=== PATIENT | female | born 1960 | race African-American/Black ===

== ENCOUNTER 2016-11-08 02:58 | Emergency (ER) | payer MEDICAID ==
[~2016-11-08] VITALS: Ht 175.3 cm; Wt 56.7 kg
[~2016-11-08 02:58] MED LIST: APA PO; BACITRACIN 500 UNIT TP; BACTRIM 400 MG-1 TAB PO; HYDROCODONE PO; LISINOPRIL40 MG PO; PRINIVIL10 M1 PO; TENORMIN50 M1 PO
[2016-11-08 03:07] VITALS: BP 142/82
--- NOTE | 2016-11-08 03:14 | NUR ---
PATIENT TO ER BED 5
--- NOTE | 2016-11-08 03:16 | NUR ---
56 Y/O F W/C/O PAIN ACHING/ BURNING TO L FOOT X 1 WK. DRYNESS TO AFFECTED FOOT NOTED. NO S/S OF DISTRESS NOTED AT THE MOMENT, WILL CONT TO MONITOR.
[2016-11-08 04:14] VITALS: BP 140/79
--- NOTE | 2016-11-08 04:14 | NUR ---
Patient discharged with v/s stable. Written and verbal after care instructions given and explained. Patient alert, oriented and verbalized understanding of instructions. Ambulatory with steady gait. All questions addressed prior to discharge. ID band removed. Patient advised to follow up with PMD. Rx of LOTRIMIN given. Patient educated on indication of medication including possible reaction and side effects. Opportunity to ask questions provided and answered.
== END 2016-11-08 04:14 | disposition home or self-care (01) ==
LOC: MED 02:58
DX: M76.61 Achilles tendinitis, right leg (principal); B35.3 Tinea pedis; I10 Essential (primary) hypertension
CPT/HCPCS: 73610; 73630; 99284; Q0092

== ENCOUNTER 2017-09-13 16:15 | Emergency (ER) | payer MEDICAID ==
[~2017-09-13] VITALS: Ht 172.7 cm; Wt 58.1 kg
[~2017-09-13 16:15] MED LIST changes: -APA PO; -BACITRACIN 500 UNIT TP; -BACTRIM 400 MG-1 TAB PO; -HYDROCODONE PO; +LISI40TA4 PO; -LISINOPRIL40 MG PO; -PRINIVIL10 M1 PO; -TENORMIN50 M1 PO
[2017-09-13 16:38] VITALS: BP 150/89
[2017-09-13] MEDS ORDERED: HYDR1CAP PO (17:39)
[2017-09-13 19:42] VITALS: BP 142/85
== END 2017-09-13 19:42 | disposition home or self-care (01) ==
LOC: MED 16:15
DX: J06.9 Acute upper respiratory infection, unspecified (principal); I10 Essential (primary) hypertension; Z79.899 Other long term (current) drug therapy; F17.210 Nicotine dependence, cigarettes, uncomplicated
CPT/HCPCS: 36415; 71045; 87804; 99285; Q0092

== ENCOUNTER 2017-10-26 11:33 | Inpatient (IN) | payer MEDICAID ==
[~2017-10-26] VITALS: Ht 177.8 cm; Wt 56.3 kg
[2017-10-26 11:51] VITALS: BP 109/56
[2017-10-26 14:10] LABS: BASOPHILS # (AUTO) 0.4 K/uL (0.00-0.22); EOSINOPHILS # (AUTO) 0.2 K/uL (0-0.4); HEMATOCRIT 45.1 % (36-48); HEMOGLOBIN 15.2 g/dL (12.0-16.0); LYMPHOCYTES # (AUTO) 1.8 K/uL (2.5-16.5); MEAN CORPUSCULAR HEMOGLOBIN 31 pg (27-31); MEAN CORPUSCULAR HGB CONC 34 g/dL (33-37); MEAN CORPUSCULAR VOLUME 92 fL (80-94); MONOCYTES # (AUTO) 0.8 K/uL (0.8-1.0); NEUTROPHILS # (AUTO) 9.2 K/uL (1.8-7.7); PLATELET COUNT (AUTO) 252 K/uL (140-450); RED BLOOD CELL COUNT(AUTO) 4.91 MIL/uL (4.20-5.40); RED CELL DISTRIBUTION WIDTH 13.4 % (11.6-13.7); WHITE BLOOD COUNT (AUTO) 12.4 K/uL (4.8-10.8)
[2017-10-26 14:43] LABS: PROTHROMBIN TIME 10.5 secs (10.8-13.4)
[2017-10-26 14:44] LABS: ANION GAP 15.3 (8-16); CARBON DIOXIDE 22.1 mmol/L (21-32); CREATININE 0.8 mg/dL (0.6-1.3); POTASSIUM 3.4 mmol/L (3.5-5.1)
[2017-10-26] MEDS ORDERED: ASPIRIN 81 MG TAB.CHEW PO ONE (14:50)
[2017-10-26] MEDS ORDERED: NITROGLYCERIN 2% 1 GM PKT TP ONE (14:50)
[2017-10-26] MEDS ORDERED: HYDROcodone/APAP 7.5/325 MG 1 TAB PO PRN (15:05)
[2017-10-26] MEDS ORDERED: MORPHINE SULFATE 2 MG/ML SYR IVP PRN (15:05)
[2017-10-26] MEDS ORDERED: ACETAMINOPHEN 325 MG TAB PO PRN (15:05)
[2017-10-26] MEDS ORDERED: ONDANSETRON 4 MG/2 ML VIAL IM/IVP PRN (15:05)
[2017-10-26] MEDS ORDERED: DOCUSATE SODIUM 100 MG GELCAP PO PRN (15:05)
[2017-10-26] MEDS ORDERED: MECLIZINE 25 MG TAB PO PRN (15:10)
[2017-10-26] MEDS ORDERED: ZOLPIDEM 5 MG TAB PO PRN (15:35)
[2017-10-26] MEDS ORDERED: ALBUTEROL SULFATE/IPRATROPIU 3 ML SOL IH PRN (16:00)
[2017-10-26] MEDS ORDERED: POTASSIUM CHLORIDE 10 MEQ TABER PO SCH (16:06)
[2017-10-26 16:11] LABS: CHOL/HDL RATIO 2.4 (1-4.5); FREE T4 (FREE THYROXINE) 1.11 ng/dL (0.76-1.46); MAGNESIUM 1.8 mg/dL (1.8-2.4); PHOSPHORUS 1.8 mg/dL (2.5-4.9); THYROID STIMULATING HORMONE 0.68 uIU/mL (0.34-3.74)
[2017-10-26 17:14] VITALS: BP 148/84
[2017-10-26] MEDS: NACL 0.9% 1,000 ML IV SCH (17:38)
[2017-10-26 18:36] LABS: BILIRUBIN,URINE 1+ (NEGATIVE); BLOOD, URINE 2+ (NEGATIVE); LEUKOCYTE ESTERASE ,URINE 2+ (NEGATIVE); NITRITE, URINE NEGATIVE (NEGATIVE); PH,URINE 5.5 (5.0-9.0); UGLUCOSE NEGATIVE (NEGATIVE)
[2017-10-26 18:37] LABS: APPEARANCE,URINE HAZY (CLEAR); COLOR,URINE AMBER (YELLOW)
[2017-10-26 18:49] LABS: BARBITURATE, URINE POS. ng/ml (NEG <=200); BENZODIAZEPINE, URINE NEG. ng/mL (NEG <=200); CANNABINOID, URINE POS. ng/mL (NEG <=50); COCAINE, URINE POS. ng/mL (NEG <=300); OPIATE, URINE POS. ng/mL (NEG <=2000); PHENCYCLIDINE SCREEN,URINE NEG. ng/mL (NEG <=25)
[2017-10-26 19:30] LABS: RBC,URINE 3-10 (FEW) /HPF (0-5); WBC,URINE 60-80 /HPF (0-5)
[2017-10-26 20:10] VITALS: BP 144/97
[2017-10-26] MEDS: LISINOPRIL 20 MG TAB PO SCH (20:34)
[2017-10-26] MEDS: NICOTINE TRANSD SYS 7 MG/24 HR PATCH TD SCH (20:36)
[2017-10-27] VITALS: BP 137/87
[2017-10-27] MEDS: LEVOFLOXACIN 750 MG/D5W PREMIX 150 ML IV SCH (02:07)
[2017-10-27 04:00] VITALS: BP 138/92
[2017-10-27] MEDS ORDERED: CLINDAMYCIN 600 MG/4 ML VIAL ONE (05:10)
[2017-10-27] MEDS: CLINDAMYCIN 600 MG in DEXTROSE 5% 50 ML IV SCH ×3 (05:26→20:47)
[2017-10-27 06:42] LABS: T4 (THYROXINE) 8.4 ug/dL (4.5-12.0)
[2017-10-27 06:55] LABS: BASOPHILS # (AUTO) 0.1 K/uL (0.00-0.22); BASOPHILS % (AUTO) 1.9 % (0.0-2.0); EOSINOPHILS # (AUTO) 0.1 K/uL (0-0.4); HEMATOCRIT 44.2 % (36-48); HEMOGLOBIN 14.3 g/dL (12.0-16.0); LYMPHOCYTES # (AUTO) 1.8 K/uL (2.5-16.5); LYMPHOCYTES % (AUTO) 23.6 % (20.5-51.1); MEAN CORPUSCULAR HEMOGLOBIN 25 pg (27-31); MEAN CORPUSCULAR HGB CONC 32 g/dL (33-37); MEAN CORPUSCULAR VOLUME 79 fL (80-94); MONOCYTES # (AUTO) 0.5 K/uL (0.8-1.0); MONOCYTES % (AUTO) 7.1 % (1.7-9.3); NEUTROPHILS # (AUTO) 4.9 K/uL (1.8-7.7); NEUTROPHILS % (AUTO) 66.4 % (42.2-75.2); PLATELET COUNT (AUTO) 178 K/uL (140-450); RED BLOOD CELL COUNT(AUTO) 5.63 MIL/uL (4.20-5.40); RED CELL DISTRIBUTION WIDTH 14.9 % (11.6-13.7); WHITE BLOOD COUNT (AUTO) 7.4 K/uL (4.8-10.8)
[2017-10-27 07:22] LABS: ANION GAP 13.1 (8-16); CARBON DIOXIDE 25.3 mmol/L (21-32); CREATININE 1.3 mg/dL (0.6-1.3); POTASSIUM 4.4 mmol/L (3.5-5.1)
[2017-10-27 07:31] LABS: PHOSPHORUS 3.4 mg/dL (2.5-4.9)
[2017-10-27 08:00] VITALS: BP 160/97
[2017-10-27] MEDS: LISINOPRIL 20 MG TAB PO SCH ×2 (09:24→20:47)
[2017-10-27] MEDS: ASPIRIN 81 MG TAB.CHEW PO SCH (09:24)
[2017-10-27] MEDS: NACL 0.9% 1,000 ML IV SCH (09:25)
[2017-10-27] MEDS: LACTOBACILLUS RHAMNOSUS GG 1 EACH CAP PO SCH (09:25)
[2017-10-27] MEDS: ATORVASTATIN 80 MG TAB PO SCH (09:25)
[2017-10-27 12:01] VITALS: BP 160/87
[2017-10-27] MEDS ORDERED: amLODIPine 5 MG TAB PO SCH (13:00)
[2017-10-27 16:00] VITALS: BP 158/82
[2017-10-27 20:05] VITALS: BP 158/88
[2017-10-27] MEDS: NICOTINE TRANSD SYS 7 MG/24 HR PATCH TD SCH (20:47)
[2017-10-28] MEDS: NACL 0.9% 1,000 ML IV SCH (00:21)
[2017-10-28 00:44] VITALS: BP 131/80
[2017-10-28] MEDS: LEVOFLOXACIN 750 MG/D5W PREMIX 150 ML IV SCH (00:55)
[2017-10-28 04:36] VITALS: BP 158/88
[2017-10-28] MEDS: CLINDAMYCIN 600 MG in DEXTROSE 5% 50 ML IV SCH (04:57)
[2017-10-28 05:58] LABS: HEMATOCRIT 47.1 % (36-48); HEMOGLOBIN 14.8 g/dL (12.0-16.0); MEAN CORPUSCULAR HEMOGLOBIN 25 pg (27-31); MEAN CORPUSCULAR HGB CONC 32 g/dL (33-37); MEAN CORPUSCULAR VOLUME 80 fL (80-94); PLATELET COUNT (AUTO) 186 K/uL (140-450); RED BLOOD CELL COUNT(AUTO) 5.91 MIL/uL (4.20-5.40); RED CELL DISTRIBUTION WIDTH 14.6 % (11.6-13.7); WHITE BLOOD COUNT (AUTO) 8.7 K/uL (4.8-10.8)
[2017-10-28 06:16] LABS: CARBON DIOXIDE 26.5 mmol/L (21-32); CREATININE 1.2 mg/dL (0.6-1.3); POTASSIUM 4.5 mmol/L (3.5-5.1)
[2017-10-28 06:25] LABS: PHOSPHORUS 3.2 mg/dL (2.5-4.9)
[2017-10-28 07:06] LABS: BASOPHILS % (MANUAL) 1 % (0-2); EOSINOPHILS % (MANUAL) 1 % (0-4); LYMPHOCYTES % (MANUAL) 15 % (20-46); MONOCYTES % (MANUAL) 4 % (5-12)
[2017-10-28 08:00] VITALS: BP 171/90
[2017-10-28] MEDS: LACTOBACILLUS RHAMNOSUS GG 1 EACH CAP PO SCH (08:38)
[2017-10-28] MEDS: ATORVASTATIN 80 MG TAB PO SCH (08:38)
[2017-10-28] MEDS: LISINOPRIL 20 MG TAB PO SCH (08:38)
[2017-10-28] MEDS: ASPIRIN 81 MG TAB.CHEW PO SCH (08:38)
[2017-10-28] MEDS ORDERED: amLODIPine 5 MG TAB PO SCH (09:00)
== END 2017-10-28 09:40 | disposition left against medical advice (07) | DRG 47 ==
LOC: MED 11:33 → MTU 15:05 → MMU 20:07
PROVIDERS: ADMIT Family Medicine Sports Medicine; ATTEND Family Medicine Sports Medicine
DX: G45.9 Transient cerebral ischemic attack, unspecified (principal); N17.0 Acute kidney failure with tubular necrosis; J69.0 Pneumonitis due to inhalation of food and vomit; I10 Essential (primary) hypertension; D32.9 Benign neoplasm of meninges, unspecified; E87.6 Hypokalemia; N39.0 Urinary tract infection, site not specified; F19.10 Other psychoactive substance abuse, uncomplicated; F14.20 Cocaine dependence, uncomplicated; F12.20 Cannabis dependence, uncomplicated; J98.11 Atelectasis; F19.11 Other psychoactive substance abuse, in remission; R31.9 Hematuria, unspecified; K76.0 Fatty (change of) liver, not elsewhere classified; F33.1 Major depressive disorder, recurrent, moderate; Z53.21 Procedure and treatment not carried out due to patient leaving prior to being seen by health care provider; Z86.011 Personal history of benign neoplasm of the brain; Z87.891 Personal history of nicotine dependence; Z79.899 Other long term (current) drug therapy
CPT/HCPCS: 36415; 70450; 71045; 76700; 76770; 80048; 80053; 80305; 81001; 82140; 82150; 82550; 82948; 83036; 83690; 83735; 83880; 84100; 84436; 84439; 84443; 84479; 84484; 85025; 85610; 85730; 87040; 87081; 87086; 93005; 93880; 99291; J1956; J3490; J7030; J7060; Q0092

== ENCOUNTER 2019-07-13 21:44 | Emergency (ER) | payer MEDICAID ==
[~2019-07-13] VITALS: Ht 167.6 cm; Wt 65.3 kg
[2019-07-13 21:52] VITALS: BP 174/86
--- NOTE | 2019-07-13 21:55 | NUR ---
FIRST CONTACT PATIENT BIB FOR STROKE LIKE SYMPTOMS. PER , LSN [id number] THIS MORNING. PATIENT PRESENTS WITH +FACIAL DROOP, AND + SLURRING THAT STATES IS NEW- NIH 2. PATIENT GCS 15, AAOX4, PERRLA 3/25MM BILAT. THERE IS NO VISUAL GAZE, NO TONGUE DEVIATION,NO DROOLING OR POOLING OF ORAL SECRETIONS. NO DRIFTS TO BUE/BLE, BOWL TURNER STRENGTHS ARE =/STRONG. PATIENT DENIES ANY DECREASE OF LOSS OF SENSATION. PATIENT DOES ENDORSE HEADACHE. VISUAL MORROW ARE INTACT- PER PATIENT HAD MASON THIS MORNING AND STILL WENT TO WORK. PATIENT DENIES ANY CP/SOB, NO N/V/D. ACCU 107 MG/DL. IV EST 18G TO LAC, C/D/P. PATIENT CONNECTED TO , DR WASHINGTON MADE AWARE AND AT BEDSIDE. CT DAMEONRMEME AT BEDSIDE- NO ACUTE DISTRESS NOTED.WILL CONTINUE TO MONITOR
--- NOTE | 2019-07-13 22:10 | NUR ---
PATIENT TAKEN TO CT-
[2019-07-13 22:50] LABS: BASOPHILS # (AUTO) 0.1 K/uL (0.00-0.22); BASOPHILS % (AUTO) 3.1 % (0.0-2.0); EOSINOPHILS # (AUTO) 0.2 K/uL (0-0.4); EOSINOPHILS % (AUTO) 4.2 % (0.0-4.0); HEMATOCRIT 39.9 % (36-48); HEMOGLOBIN 12.8 g/dL (12.0-16.0); LYMPHOCYTES # (AUTO) 1.6 K/uL (2.5-16.5); LYMPHOCYTES % (AUTO) 33.6 % (20.5-51.1); MEAN CORPUSCULAR HEMOGLOBIN 25 pg (27-31); MEAN CORPUSCULAR HGB CONC 32 g/dL (33-37); MEAN CORPUSCULAR VOLUME 78.7 fL (80-94); MONOCYTES # (AUTO) 0.5 K/uL (0.8-1.0); NEUTROPHILS # (AUTO) 2.2 K/uL (1.8-7.7); NEUTROPHILS % (AUTO) 48.1 % (42.2-75.2); PLATELET COUNT (AUTO) 168 K/uL (140-450); RED BLOOD CELL COUNT(AUTO) 5.08 MIL/uL (4.20-5.40); RED CELL DISTRIBUTION WIDTH 15.8 % (11.6-13.7); WHITE BLOOD COUNT (AUTO) 4.6 K/uL (4.8-10.8)
[2019-07-13 23:01] LABS: ANION GAP 11.7 (8-16); CARBON DIOXIDE 27.9 mmol/L (21-32); CREATININE 1.5 mg/dL (0.6-1.3); POTASSIUM 3.6 mmol/L (3.5-5.1)
[2019-07-13 23:03] LABS: PROTHROMBIN TIME 10.1 secs (10.8-13.4)
[2019-07-13 23:04] LABS: BILIRUBIN,URINE NEGATIVE (NEGATIVE); BLOOD, URINE NEGATIVE (NEGATIVE); COLOR,URINE YELLOW (YELLOW); LEUKOCYTE ESTERASE ,URINE 2+ (NEGATIVE); NITRITE, URINE NEGATIVE (NEGATIVE); PH,URINE 6.5 (5.0-9.0); UGLUCOSE NEGATIVE (NEGATIVE)
[2019-07-13 23:05] LABS: APPEARANCE,URINE CLOUDY (CLEAR)
[2019-07-13 23:12] LABS: BARBITURATE, URINE NEG. ng/ml (NEG <=200); BENZODIAZEPINE, URINE NEG. ng/mL (NEG <=200); CANNABINOID, URINE NEG. ng/mL (NEG <=50); COCAINE, URINE POS. ng/mL (NEG <=300); OPIATE, URINE NEG. ng/mL (NEG <=2000); PHENCYCLIDINE SCREEN,URINE NEG. ng/mL (NEG <=25)
[2019-07-13 23:16] LABS: ALBUMIN 3.2 g/dL (3.4-5.0); TOTAL BILIRUBIN 0.3 mg/dL (0.0-1.0)
[2019-07-13 23:20] LABS: RBC,URINE NONE SEEN /HPF (0-5); WBC,URINE 20-60 /HPF (0-5)
--- NOTE | 2019-07-13 23:48 | NUR ---
IV FOUND OUT OF PTS ARM AND ON BED.
--- NOTE | 2019-07-13 23:49 | NUR ---
PT AMBULATED TO RESTROOM.
--- NOTE | 2019-07-14 00:03 | NUR ---
Patient discharged with v/s stable. Written and verbal after care instructions given and explained. Patient verbalized understanding. Ambulatory with steady gait. All questions addressed prior to discharge. Advised to follow up with PMD. Patient personally removed her own IV, cath intact site benign, 2x2 applied-
[2019-07-14 00:04] VITALS: BP 132/78
== END 2019-07-14 00:04 | disposition home or self-care (01) ==
LOC: MED 21:44
DX: F14.10 Cocaine abuse, uncomplicated (principal); R47.81 Slurred speech; I10 Essential (primary) hypertension; Z85.9 Personal history of malignant neoplasm, unspecified
CPT/HCPCS: 36415; 70450; 70496; 70498; 71045; 80053; 80305; 81001; 82948; 84484; 85025; 85610; 85730; 86886; 86900; 86901; 87086; 93005; 99284; Q0092; Q9967

== ENCOUNTER 2019-09-01 14:25 | Emergency (ER) | payer MEDICAID ==
[~2019-09-01] VITALS: Ht 182.9 cm; Wt 63.5 kg
--- NOTE | 2019-09-01 14:42 | NUR ---
PATIENT AMBULATED WITH STEADY GAIT TO BED 2.
[2019-09-01 14:46] VITALS: BP 158/94
--- NOTE | 2019-09-01 14:54 | NUR ---
59/F BIB SELF C/O DYSURIA X1 DAY. PT DENIES ANY OTHER ACCOMPANYING SYMPTOMS.HX: BRAIN TUMORS, HTN. PATIENT STATES PAIN OF 810 AT THIS TIME. PATIENT POSITIONED FOR COMFORT; HOB ELEVATED; BEDRAILS UP X1; BED DOWN. ANA HOBBS MADE AWARE OF PT STATUS. Addendum: 09/01/19 at 1526 by [facility] PROVIDED HOMELESS DOCUMENT, FOOD AT THIS TIME.
[2019-09-01] MEDS ORDERED: PHENAZOPYRIDINE 100 MG TAB PO ONE (15:00)
[2019-09-01] MEDS ORDERED: cefTRIAXone 1,000 MG in LIDOCAINE MPF 1% 2.1 ML IM ONE (15:00)
[2019-09-01] MEDS ORDERED: cefTRIAXone 1,000 MG VIAL ONE (15:03)
[2019-09-01] MEDS ORDERED: LIDOCAINE MPF 1% 5 ML ONE (15:05)
[2019-09-01 15:24] VITALS: BP 125/86
--- NOTE | 2019-09-01 15:24 | NUR ---
Patient discharged with v/s stable. Written and verbal after care instructions given and explained. Patient alert, oriented and verbalized understanding of instructions. Ambulatory with steady gait. All questions addressed prior to discharge. ID band removed. Patient advised to follow up with PMD. Rx of PYRIDIUM & MACRODANTIN given. Patient educated on indication of medication including possible reaction and side effects. Opportunity to ask questions provided and answered.
== END 2019-09-01 15:24 | disposition home or self-care (01) ==
LOC: MED 14:25
DX: N39.0 Urinary tract infection, site not specified (principal); I10 Essential (primary) hypertension
CPT/HCPCS: 81002; 96372; 99283; J0696; J2001

== ENCOUNTER 2021-02-01 16:40 | Inpatient (IN) | payer MEDICAID, OTHER, SELFPAY ==
[~2021-02-01] VITALS: Ht 167.6 cm; Wt 66.2 kg
[~2021-02-01 16:40] MED LIST changes: +LISI40TA10 PO; -LISI40TA4 PO
[2021-02-01 16:48] VITALS: BP 156/74
--- NOTE | 2021-02-01 17:27 | NUR ---
PT AMBULATED TO BED 09.
--- NOTE | 2021-02-01 17:42 | NUR ---
60 Y/O FEMALE C/O WEAKNESS, DIZZINESS, HEADACHE X 1 DAY. PT REPORTS GETTING OFF-BALANCED WHEN SHE WALKS BUT DENIES FALLING. PT ALSO REPORTS NUMBNESS OF BILATERAL HANDS. DENIES N/V. DENIES PAIN AT THIS TIME. EQUAL HAND STRENGTH BILATERAL. PT A/O X4 WITH EVEN AND UNLABORED RESPIRATIONS. 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 PMH: HTN, HLD, BRAIN TUMOR- REGULAR VISITS WITH PCP MEDS: LISINOPRIL, NIFEDIPINE, OXYBUTYRINE NKA
--- NOTE | 2021-02-01 18:10 | NUR ---
PT TAKEN TO CT VIA A[facility]LA[facility]
--- NOTE | 2021-02-01 19:18 | NUR ---
RECEIVED REPORT FROM SACHA ROUSE FOR CONTINUITY OF CARE
--- NOTE | 2021-02-01 19:26 | NUR ---
REPORT GIVEN TO HAYES ROUSE, TRANSFER OF CARE AT THIS TIME
--- NOTE | 2021-02-01 20:20 | NUR ---
18G IV PLACED IN LEFT A/C. BLOOD LABS COLLECTED FROM IV SITE AND HANDED TO NEREIDA FROM LAB.
[2021-02-01 20:35] LABS: BASOPHILS # (AUTO) 0.1 K/uL (0.00-0.22); EOSINOPHILS # (AUTO) 0.1 K/uL (0-0.4); EOSINOPHILS % (AUTO) 1.8 % (0.0-4.0); HEMATOCRIT 46.5 % (36-48); HEMOGLOBIN 15.1 g/dL (12.0-16.0); LYMPHOCYTES % (AUTO) 34.9 % (20.5-51.1); MEAN CORPUSCULAR HEMOGLOBIN 26 pg (27-31); MEAN CORPUSCULAR HGB CONC 33 g/dL (33-37); MEAN CORPUSCULAR VOLUME 78.9 fL (80-94); MONOCYTES # (AUTO) 0.6 K/uL (0.8-1.0); MONOCYTES % (AUTO) 10.3 % (1.7-9.3); NEUTROPHILS # (AUTO) 2.9 K/uL (1.8-7.7); PLATELET COUNT (AUTO) 220 K/uL (140-450); RED BLOOD CELL COUNT(AUTO) 5.89 MIL/uL (4.20-5.40); WHITE BLOOD COUNT (AUTO) 5.6 K/uL (4.8-10.8)
[2021-02-01 20:47] LABS: CREATININE 1.2 mg/dL (0.6-1.3)
[2021-02-01 20:54] LABS: ALBUMIN 3.7 g/dL (3.4-5.0); TOTAL BILIRUBIN 0.3 mg/dL (0.0-1.0)
--- NOTE | 2021-02-01 22:42 | NUR ---
COLLECTED EARNESTINE SWAB AND HANDED TO CPT ALBINO
--- NOTE | 2021-02-01 22:43 | NUR ---
TELE NEURO REQUEST INTIATED
[2021-02-01] MEDS ORDERED: ASPIRIN 325 MG TAB PO ONE (23:00)
[2021-02-01 23:08] LABS: APPEARANCE,URINE CLOUDY (CLEAR); BILIRUBIN,URINE NEGATIVE (NEGATIVE); BLOOD, URINE TRACE-I (NEGATIVE); COLOR,URINE YELLOW (YELLOW); LEUKOCYTE ESTERASE ,URINE 3+ (NEGATIVE); NITRITE, URINE NEGATIVE (NEGATIVE); PH,URINE 5.5 (5.0-9.0); UGLUCOSE NEGATIVE (NEGATIVE)
[2021-02-01 23:13] LABS: BARBITURATE, URINE NEGATIVE ng/ml (NEG <=200); BENZODIAZEPINE, URINE NEGATIVE ng/mL (NEG <=200); CANNABINOID, URINE NEGATIVE ng/mL (NEG <=50); COCAINE, URINE POSITIVE ng/mL (NEG <=300); OPIATE, URINE NEGATIVE ng/mL (NEG <=2000); PHENCYCLIDINE SCREEN,URINE NEGATIVE ng/mL (NEG <=25)
--- NOTE | 2021-02-01 23:25 | NUR ---
RECEIVED TELEPHONE REPORT FROM ER NURSE, CHERYL. PT AOX4 ON ROOM AIR. CC: WEAKNESS, DIZZINESS, MASON. DX: SUBACUTE STROKE, HX: HTN, HLD, BRAIN TUMOR. IV SITE LAC, SKIN INTACT. UNSTEADY GAIT, POSITIVE COCAINE. ASPIRIN GIVEN IN THE ER. EARNESTINE NEGATIVE. WILL GET THE ROOM READY
[2021-02-01 23:38] LABS: RBC,URINE 0-5 /HPF (0-5); TRICHOMONAS,URINE Moderate /HPF (None Seen); WBC,URINE 20-60 /HPF (0-5)
[2021-02-01] MEDS ORDERED: ONDANSETRON 4 MG/2 ML VIAL IM/IVP PRN (23:50)
[2021-02-01] MEDS ORDERED: ACETAMINOPHEN 325 MG TAB PO PRN (23:50)
[2021-02-01] MEDS ORDERED: SODIUM PHOS / POTASSIUM PHOS 1 PKT PDR PO PRN (23:50)
[2021-02-01] MEDS ORDERED: MAG SULF 2000 MG/WATER PREMIX 50 ML IV PRN (23:50)
[2021-02-01] MEDS ORDERED: DOCUSATE SODIUM 100 MG GELCAP PO PRN (23:50)
[2021-02-01] MEDS ORDERED: HYDROcodone/APAP 5/325 MG 1 TAB TAB PO PRN (23:50)
[2021-02-01] MEDS ORDERED: POTASSIUM CHLORIDE 40 MEQ, LIDOCAINE MPF 1% 25 MG in NACL 0.9% 250 ML IV PRN (23:50)
[2021-02-02] MEDS ORDERED: metroNIDAZOLE 500 MG TAB PO ONE
--- NOTE | 2021-02-02 00:09 | NUR ---
PT WAS TAKEN IN CT VIA A[facility]
[2021-02-02 00:20] LABS: MAGNESIUM 2.1 mg/dL (1.8-2.4); PHOSPHORUS 3.9 mg/dL (2.5-4.9)
--- NOTE | 2021-02-02 00:20 | NUR ---
Patient will be admitted to care of DR. CASAS. Admited to TELEMMETRY. Will go to room 108B. Belongings list completed. Report to ESPERANZA ROUSE.
[2021-02-02 00:35] VITALS: BP 137/73
--- NOTE | 2021-02-02 00:35 | NUR ---
PATIENT ARRIVED TO UNIT. ON TELE, AOX4 ON ROOM AIR. NO S/S RESPIRATORY DISTRESS. AMBULATES WITH UNSTEADY GAIT. LUNGS CLEAR. BOWELS ACTIVE. SKIN WARM DRY INTACT. IV SITE LAC PATENT INTACT. LBM 02/01/21 MODERATE FORMED. ALL EXTREMITIES 5/5 STRENGTH. HAS SLIGHT FACIAL DROOP ON LEFT SIDE. SPEECH IS SLURRED AND HOARSE. COOPERATIVE, ABLE TO MAKE NEEDS KNOWN. OBTAINED MRSA SWAB AND VITAL SIGNS. ORIENTED PATIENT TO ROOM AND HOSPITAL. SAFETY MEASURES IN PLACE. CALL LIGHT WITHIN REACH. WILL CONTINUE TO MONITOR
--- NOTE | 2021-02-02 01:00 | NUR ---
PATIENT TALKING ON PHONE WITH
[2021-02-02] MEDS: NACL 0.9% 1,000 ML IV SCH ×2 (01:02→23:28)
[2021-02-02] MEDS: MORPHINE SULFATE 2 MG/ML SYR IVP PRN ×2 (01:07→21:02)
--- NOTE | 2021-02-02 01:10 | NUR ---
DUE SCHEDULED MEDICATION GIVEN. PRN MORPHINE GIVEN FOR C/O 05/10 MASON RIGHT RESTORATIONIST INTERMITTENT, NONRADIATING. MEDICATION EDUCATION PROVIDED. PT VERBALIZED UNDERSTANDING. NO DISTRESS NOTED. SAFETY MEASURES IN PLACE. CALL LIGHT WITHIN REACH. WILL CONTINUE TO MONITOR
--- NOTE | 2021-02-02 03:40 | NUR ---
PATIENT ASLEEP IN BED COMFORTABLY. RESPIRATIONS EVEN UNLABORED. NO S/S ACUTE DISTRESS NOTED. CALL LIGHT WITHIN REACH. WILL CONTINUE TO MONITOR
[2021-02-02 04:00] VITALS: BP 145/70
[2021-02-02 05:32] LABS: BASOPHILS % (AUTO) 1.1 % (0.0-2.0); EOSINOPHILS # (AUTO) 0.1 K/uL (0-0.4); EOSINOPHILS % (AUTO) 2.7 % (0.0-4.0); HEMATOCRIT 43.8 % (36-48); HEMOGLOBIN 14.2 g/dL (12.0-16.0); LYMPHOCYTES # (AUTO) 1.6 K/uL (2.5-16.5); MEAN CORPUSCULAR HEMOGLOBIN 25 pg (27-31); MEAN CORPUSCULAR HGB CONC 32 g/dL (33-37); MEAN CORPUSCULAR VOLUME 78.7 fL (80-94); MONOCYTES # (AUTO) 0.5 K/uL (0.8-1.0); MONOCYTES % (AUTO) 13.1 % (1.7-9.3); NEUTROPHILS # (AUTO) 1.8 K/uL (1.8-7.7); NEUTROPHILS % (AUTO) 44.1 % (42.2-75.2); PLATELET COUNT (AUTO) 193 K/uL (140-450); RED BLOOD CELL COUNT(AUTO) 5.56 MIL/uL (4.20-5.40); RED CELL DISTRIBUTION WIDTH 15.4 % (11.6-13.7)
[2021-02-02 05:40] LABS: CARBON DIOXIDE 25.9 mmol/L (21-32); CREATININE 1.1 mg/dL (0.6-1.3); POTASSIUM 3.9 mmol/L (3.5-5.1)
--- NOTE | 2021-02-02 05:50 | NUR ---
PATIENT RESTING IN BED. DENIES PAIN. NO S/S ACUTE DISTRESS NOTED. CALL LIGHT WITHIN REACH. WILL CONTINUE TO MONITOR
[2021-02-02 06:53] LABS: CHOL/HDL RATIO 4.1 (1-4.5)
--- NOTE | 2021-02-02 07:16 | NUR ---
PATIENT HAS BEEN SCREENED AND CATEGORIZED HIGH NUTRITION RISK. PATIENT WILL BE SEEN WITHIN 1-2 DAYS OF ADMISSION. 02/02/21 02/03/[address]
--- NOTE | 2021-02-02 07:21 | NUR ---
ENDORSED PATIENT TO DAY RN FOR CONTINUITY OF CARE. PATIENT IS IN STABLE CONDITION
--- NOTE | 2021-02-02 07:30 | NUR ---
RECEIVED PATIENT FROM PRINCIPAL TECHNICAL SPECIALIST NURSE. PT IN BED, ASLEEP AT THIS TIME. NO APPARENT DISTRESS, RESPIRATIONS EVEN AND UNLABORED, SKIN WARM AND DRY. IV SITE LAC 18G INFUSING IVF. ABDOMEN SOFT, NONTENDER, NONTENDER. SAFETY PRECAUTIONS IN PLACE. CALL LIGHT WITHIN REACH. WILL CONTINUE TO MONITOR
[2021-02-02 08:00] VITALS: BP 142/74
--- NOTE | 2021-02-02 08:40 | NUR ---
DUE MORNING MEDS GIVEN. TOLERATED WELL
[2021-02-02] MEDS: ATORVASTATIN 20 MG TAB PO SCH (09:09)
[2021-02-02] MEDS: ECOTRIN 81 MG TABEC PO SCH (09:09)
--- NOTE | 2021-02-02 09:32 | NUR ---
02/02/21 RD INITIAL ASSESSMENT COMPLETED PLEASE REFER TO NUTRITION ASSESSMENT UNDER CARE ACTIVITY FOR ESTIMATED NUTRITIONAL NEEDS. 1. CONTINUE CARDIAC DIET TOLERATED --RD TO FOLLOW UP ON TEXTURE TOLERANCE, 2. RD TO FOLLOW-UP 2-3 DAYS, HIGH RISK SUMAN CARCAMO, RD
--- NOTE | 2021-02-02 10:45 | NUR ---
PT STILL WITH LEFT FACIAL DROOP, LEFT SIDE WEAKNESS AND SLURRED SPEECH. PAGED DR GAN, AWAITING CALL BACK. DR CASAS AWARE
[2021-02-02 12:00] VITALS: BP 128/64
--- NOTE | 2021-02-02 13:26 | NUR ---
PT RESTING IN BED AT THIS TIME. NO C/O PAIN, NO SOB
--- NOTE | 2021-02-02 14:50 | NUR ---
DISCHARGE TO [facility] VIA [facility]
[2021-02-02 16:00] VITALS: BP 91/48
--- NOTE | 2021-02-02 17:00 | NUR ---
SEEN BY DR GAN
--- NOTE | 2021-02-02 18:22 | NUR ---
PT IN BED EATING DINNER. NO C/O PAIN, NO SOB. STILL WITH LEFT SIDE WEAKNESS
--- NOTE | 2021-02-02 19:15 | NUR ---
RECEIVED PATIENT FROM AM SHIFT NURSE FOR CONTINUITY OF CARE. ALERT AND ABLE TO MAKE NEEDS KNOWN. RESPIRATIONS EVEN, UNLABORED. NO S/S RESPIRATORY DISTRESS. S1/S2 AUSCULTATED. TELE MONITORING. SKIN WARM, DRY. SALINE LOCK NOTED TO LEFT AC 18G PATENT/INTACT. C/O PAIN, WILL MEDICATE ORDERED. NO S/S ACUTE DISTRESS. ABDOMEN SOFT, NONTENDER, NONDISTENDED. BOWEL SOUNDS ACTIVE x4 QUADRANTS. PATIENT IS CONTINENT OF B/B. PLAN OF CARE DISCUSSED. SAFETY PRECAUTIONS IN PLACE. CALL LIGHT IN REACH AT ALL TIMES.
[2021-02-02 20:00] VITALS: BP 159/83
--- NOTE | 2021-02-02 21:00 | NUR ---
DUE MEDS GIVEN. NO S/S RESPIRATORY DISTRESS. C/O PAIN, WILL MEDICATE ORDERED. PROVIDED EDUCATION REGARDING ASSISTANCE WHEN OUT OF BED. PATIENT VERBALIZED UNDERSTANDING BUT NEEDS REINFORCEMENT. CALL LIGHT IN REACH AT ALL TIMES.
--- NOTE | 2021-02-02 23:19 | NUR ---
PATIENT AMBULATING IN ROOM. PROVIDED EDUCATION REGARDING SAFETY BUT PATIENT WAS UNRECEPTIVE TO TEACHING. WILL CONTINUE TO PROVIDE EDUCATION. CALL LIGHT IN REACH.
[2021-02-03] VITALS: BP 153/86
--- NOTE | 2021-02-03 01:23 | NUR ---
MADE ROUND. PATIENT RESTING COMFORTABLY IN BED. NO S/S RESPIRATORY DISTRESS. NO C/O PAIN. NO S/S ACUTE DISTRESS. SAFETY PRECAUTIONS IN PLACE. CALL LIGHT IN REACH.
--- NOTE | 2021-02-03 03:49 | NUR ---
PATIENT IS ASLEEP.
[2021-02-03 04:00] VITALS: BP 145/76
--- NOTE | 2021-02-03 05:04 | NUR ---
PATIENT RESTING COMFORTABLY IN BED. NO S/S RESPIRATORY DISTRESS. NO C/O PAIN. NO S/S ACUTE DISTRESS. CALL LIGHT IN REACH. SAFETY PRECAUTIONS IN PLACE.
[2021-02-03 06:25] LABS: BASOPHILS % (AUTO) 1.2 % (0.0-2.0); EOSINOPHILS # (AUTO) 0.2 K/uL (0-0.4); EOSINOPHILS % (AUTO) 4.8 % (0.0-4.0); HEMOGLOBIN 14.4 g/dL (12.0-16.0); LYMPHOCYTES # (AUTO) 1.1 K/uL (2.5-16.5); LYMPHOCYTES % (AUTO) 30.1 % (20.5-51.1); MEAN CORPUSCULAR HEMOGLOBIN 26 pg (27-31); MEAN CORPUSCULAR HGB CONC 32 g/dL (33-37); MEAN CORPUSCULAR VOLUME 80.2 fL (80-94); MONOCYTES # (AUTO) 0.5 K/uL (0.8-1.0); NEUTROPHILS # (AUTO) 1.8 K/uL (1.8-7.7); NEUTROPHILS % (AUTO) 50.9 % (42.2-75.2); PLATELET COUNT (AUTO) 201 K/uL (140-450); RED CELL DISTRIBUTION WIDTH 15.9 % (11.6-13.7); WHITE BLOOD COUNT (AUTO) 3.6 K/uL (4.8-10.8)
--- NOTE | 2021-02-03 07:15 | NUR ---
RECEIVED BEDSIDE REPORT FROM SAND POLISHER NURSE. PATIENT SLEEPING IN BED, ANSWERS TO NAME. BREATHING EVEN AND UNLABORED, NO SIGNS OF ACUTE DISTRESS NOTED ON RA. SKIN INTACT. L AC 20G INFUSING NS @ 40 ML/HR. CALL LIGHT WITHIN REACH, SUPERVISOR NUTRITIONAL YEAST IN PLACE, SAFETY MEASURES IN PLACE.
[2021-02-03 07:18] LABS: ANION GAP 12.8 (8-16); CARBON DIOXIDE 26.6 mmol/L (21-32); CREATININE 1.3 mg/dL (0.6-1.3); POTASSIUM 4.4 mmol/L (3.5-5.1)
[2021-02-03 08:00] VITALS: BP 170/88
--- NOTE | 2021-02-03 08:17 | NUR ---
PATIENT'S SON CALLED FOR AN UPDATE. PATIENT AUTHORIZED NURSE TO RELEASE INFORMATION TO HER SON. SON, CRISTÓBAL LIVINGSTON WAS UPDATED ON PATIENT CONDITION, ALL QUESTIONS ANSWERED, SON VERBALIZES UNDERSTANDING.
[2021-02-03] MEDS: ATORVASTATIN 20 MG TAB PO SCH (09:37)
[2021-02-03] MEDS: ECOTRIN 81 MG TABEC PO SCH (09:37)
[2021-02-03] MEDS: lisinopriL 20 MG TAB PO SCH (09:38)
--- NOTE | 2021-02-03 09:45 | NUR ---
ADMINISTERED SCHEDULED MEDS PER MD ORDER. MED EDUCATION PROVIDED, PATIENT VERBALIZES UNDERSTANDING. ADMISSIONS RECRUITER IN PLACE, SAFETY MEASURES IN PLACE.
[2021-02-03 12:00] VITALS: BP 143/88
[2021-02-03] MEDS: MORPHINE SULFATE 2 MG/ML SYR IVP PRN ×2 (12:00→20:56)
--- NOTE | 2021-02-03 12:00 | NUR ---
ADMINISTERED SCHEDULED ANTIBIOTIC AND MORPHINE FOR HEADACHE 9/10 PAIN. MED EDUCATION PROVIDED PATIENT VERBALIZES UNDERSTANDING.
[2021-02-03 16:00] VITALS: BP 159/75
--- NOTE | 2021-02-03 19:05 | NUR ---
ENDORSED TO LANDFILL GRADER NURSE FOR CONTINUITY OF CARE. PATIENT STABLE AT THIS TIME.
--- NOTE | 2021-02-03 19:05 | NUR ---
RECEIVED PATIENT FROM AM SHIFT NURSE FOR CONTINUITY OF CARE. ALERT AND ABLE TO MAKE NEEDS KNOWN. RESPIRATIONS EVEN, UNLABORED. NO S/S RESPIRATORY DISTRESS. S1/S2 AUSCULTATED. TELE MONITORING. SKIN WARM, DRY. SALINE LOCK NOTED TO LEFT AC 18G PATENT/INTACT. NO C/O PAIN. NO S/S ACUTE DISTRESS. ABDOMEN SOFT, NONTENDER, NONDISTENDED. BOWEL SOUNDS ACTIVE x4 QUADRANTS. PATIENT IS CONTINENT OF B/B. PLAN OF CARE DISCUSSED. SAFETY PRECAUTIONS IN PLACE. CALL LIGHT IN REACH AT ALL TIMES
[2021-02-03 20:00] VITALS: BP 147/64
--- NOTE | 2021-02-03 21:30 | NUR ---
DUE MEDS GIVEN. PATIENT RESTING COMFORTABLY IN BED. NO S/S RESPIRATORY DISTRESS. NO C/O PAIN. NO S/S ACUTE DISTRESS. PATIENT CLEAN/DRY. SAFETY PRECAUTIONS IN PLACE. CALL LIGHT WITHIN REACH.
[2021-02-03] MEDS: NACL 0.9% 1,000 ML IV SCH (23:40)
--- NOTE | 2021-02-03 23:43 | NUR ---
PATIENT AWAKE AND WATCHING TV. NO S/S RESPIRATORY DISTRESS. NO C/O PAIN. NO S/S ACUTE DISTRESS. SAFETY PRECAUTIONS IN PLACE. CALL LIGHT WITHIN REACH.
[2021-02-04] VITALS: BP 155/85
--- NOTE | 2021-02-04 01:06 | NUR ---
MADE ROUNDS. PATIENT IS ASLEEP. NO S/S RESPIRATORY DISTRESS. NO S/S ACUTE DISTRESS. SAFETY PRECAUTIONS IN PLACE. CALL LIGHT WITHIN REACH.
--- NOTE | 2021-02-04 03:30 | NUR ---
PATIENT IS ASLEEP. NO S/S RESPIRATORY DISTRESS. NO S/S ACUTE DISTRESS. CALL LIGHT IN REACH. SAFETY PRECAUTIONS IN PLACE.
[2021-02-04 04:00] VITALS: BP 159/87
[2021-02-04] MEDS: MORPHINE SULFATE 2 MG/ML SYR IVP PRN ×2 (04:50→21:10)
--- NOTE | 2021-02-04 05:05 | NUR ---
PATIENT IS ASLEEP. NO S/S RESPIRATORY DISTRESS. NO S/S ACUTE DISTRESS. SAFETY PRECAUTIONS IN PLACE. CALL LIGHT WITHIN REACH.
[2021-02-04 06:57] LABS: ANION GAP 16.8 (8-16); CREATININE 1.2 mg/dL (0.6-1.3); POTASSIUM 4.7 mmol/L (3.5-5.1)
[2021-02-04 07:07] LABS: BASOPHILS % (AUTO) 0.8 % (0.0-2.0); EOSINOPHILS # (AUTO) 0.1 K/uL (0-0.4); EOSINOPHILS % (AUTO) 3.5 % (0.0-4.0); HEMATOCRIT 48.2 % (36-48); HEMOGLOBIN 15.5 g/dL (12.0-16.0); LYMPHOCYTES # (AUTO) 1.3 K/uL (2.5-16.5); LYMPHOCYTES % (AUTO) 30.5 % (20.5-51.1); MEAN CORPUSCULAR HEMOGLOBIN 26 pg (27-31); MEAN CORPUSCULAR HGB CONC 32 g/dL (33-37); MEAN CORPUSCULAR VOLUME 80.4 fL (80-94); MONOCYTES # (AUTO) 0.4 K/uL (0.8-1.0); MONOCYTES % (AUTO) 9.8 % (1.7-9.3); NEUTROPHILS # (AUTO) 2.3 K/uL (1.8-7.7); NEUTROPHILS % (AUTO) 55.4 % (42.2-75.2); PLATELET COUNT (AUTO) 208 K/uL (140-450); RED CELL DISTRIBUTION WIDTH 15.8 % (11.6-13.7); WHITE BLOOD COUNT (AUTO) 4.2 K/uL (4.8-10.8)
[2021-02-04 07:21] LABS: CARBON DIOXIDE 23.8 mmol/L (21-32)
--- NOTE | 2021-02-04 07:30 | NUR ---
RECEIVED PATIENT FROM LITIGATION DOCKET MANAGER NURSE. PT IN BED, ASLEEP AT THIS TIME. NO APPARENT DISTRESS, RESPIRATIONS EVEN AND UNLABORED, SKIN WARM AND DRY. IV SITE LAC 20G and rac 22g INFUSING IVF. ABDOMEN SOFT, NONTENDER, NONTENDER. SAFETY PRECAUTIONS IN PLACE. CALL LIGHT WITHIN REACH. WILL CONTINUE TO MONITOR
[2021-02-04 08:00] VITALS: BP 152/78
--- NOTE | 2021-02-04 08:40 | NUR ---
DUE MORNING MEDS GIVEN. TOLERATED MEDS WELL
[2021-02-04] MEDS: lisinopriL 20 MG TAB PO SCH (08:43)
[2021-02-04] MEDS: ATORVASTATIN 20 MG TAB PO SCH (08:43)
[2021-02-04] MEDS: amLODIPine 5 MG TAB PO SCH (08:43)
[2021-02-04] MEDS: ECOTRIN 81 MG TABEC PO SCH (08:43)
--- NOTE | 2021-02-04 11:40 | NUR ---
PT RESTING IN BED. NO C/O PAIN, NO SOB, AFEBRILE
[2021-02-04 12:00] VITALS: BP 145/73
--- NOTE | 2021-02-04 14:20 | NUR ---
PT RESTING IN BED. NO APPARENT DISTRESS
[2021-02-04 16:00] VITALS: BP 126/50
--- NOTE | 2021-02-04 17:30 | NUR ---
ASSISTED PT IN CHANGING GOWN. NO C/O PAIN, NO SOB
--- NOTE | 2021-02-04 18:30 | NUR ---
PER PT, SHE TAKES OXYBUTYNIN 15MG DAILY FOR OVERACTIVE BLADDER. DR WAYNE NOTIFIED
[2021-02-04] MEDS: OXYBUTYNIN 5 MG TAB PO SCH (18:48)
--- NOTE | 2021-02-04 19:20 | NUR ---
RECEIVED PATIENT FROM AM SHIFT NURSE FOR CONTINUITY OF CARE. ALERT AND ABLE TO MAKE NEEDS KNOWN. RESPIRATIONS EVEN, UNLABORED. NO S/S RESPIRATORY DISTRESS. S1/S2 AUSCULTATED. TELE MONITORING. SKIN WARM, DRY. SALINE LOCK NOTED TO RIGHT AC 20G PATENT/INTACT. NO C/O PAIN. NO S/S ACUTE DISTRESS. ABDOMEN SOFT, NONTENDER, NONDISTENDED. BOWEL SOUNDS ACTIVE x4 QUADRANTS. PATIENT IS CONTINENT OF B/B. PLAN OF CARE DISCUSSED. SAFETY PRECAUTIONS IN PLACE. CALL LIGHT IN REACH AT ALL TIMES
[2021-02-04 20:00] VITALS: BP 147/87
--- NOTE | 2021-02-04 21:00 | NUR ---
DUE MEDS GIVEN.
--- NOTE | 2021-02-04 23:00 | NUR ---
ASSISTED PATIENT TO RESTROOM.
[2021-02-04] MEDS: NACL 0.9% 1,000 ML IV SCH (23:50)
[2021-02-05] VITALS: BP 154/73
--- NOTE | 2021-02-05 01:00 | NUR ---
MADE ROUNDS. PATIENT IS ASLEEP.
--- NOTE | 2021-02-05 03:00 | NUR ---
PATIENT IS ASLEEP. NO S/S ACUTE DISTRESS. CALL LIGHT IN REACH.
[2021-02-05 04:00] VITALS: BP 147/77
--- NOTE | 2021-02-05 05:16 | NUR ---
PATIENT IS SLEEPING WELL. NO S/S ACUTE DISTRESS. PATIENT CLEAN/DRY. CALL LIGHT IN REACH. SAFETY PRECAUTIONS IN PLACE.
[2021-02-05 07:02] LABS: ANION GAP 14.7 (8-16); CARBON DIOXIDE 25.7 mmol/L (21-32); CREATININE 1.1 mg/dL (0.6-1.3); POTASSIUM 4.4 mmol/L (3.5-5.1)
[2021-02-05 07:05] LABS: BASOPHILS % (AUTO) 1.1 % (0.0-2.0); EOSINOPHILS # (AUTO) 0.1 K/uL (0-0.4); EOSINOPHILS % (AUTO) 3.4 % (0.0-4.0); HEMATOCRIT 44.9 % (36-48); HEMOGLOBIN 14.5 g/dL (12.0-16.0); LYMPHOCYTES # (AUTO) 1.3 K/uL (2.5-16.5); LYMPHOCYTES % (AUTO) 34.7 % (20.5-51.1); MEAN CORPUSCULAR HEMOGLOBIN 25 pg (27-31); MEAN CORPUSCULAR HGB CONC 32 g/dL (33-37); MEAN CORPUSCULAR VOLUME 78.5 fL (80-94); MONOCYTES # (AUTO) 0.5 K/uL (0.8-1.0); MONOCYTES % (AUTO) 12.7 % (1.7-9.3); NEUTROPHILS # (AUTO) 1.9 K/uL (1.8-7.7); NEUTROPHILS % (AUTO) 48.1 % (42.2-75.2); PLATELET COUNT (AUTO) 182 K/uL (140-450); RED BLOOD CELL COUNT(AUTO) 5.72 MIL/uL (4.20-5.40); RED CELL DISTRIBUTION WIDTH 15.7 % (11.6-13.7); WHITE BLOOD COUNT (AUTO) 3.9 K/uL (4.8-10.8)
--- NOTE | 2021-02-05 07:32 | NUR ---
ENDORSED PATIENT TO AM SHIFT NURSE FOR CONTINUITY OF CARE.
--- NOTE | 2021-02-05 07:33 | NUR ---
RECEIVED ENDORSEMENT AT THIS TIME. PT IS STABLE. RESTING IN BED. DENIES ANY DISTRESS. POC DISCUSSED
[2021-02-05 08:00] VITALS: BP 125/85
[2021-02-05] MEDS: OXYBUTYNIN 5 MG TAB PO SCH (08:25)
[2021-02-05] MEDS: ECOTRIN 81 MG TABEC PO SCH (08:25)
[2021-02-05] MEDS: amLODIPine 5 MG TAB PO SCH (08:26)
[2021-02-05] MEDS: ATORVASTATIN 20 MG TAB PO SCH (08:26)
[2021-02-05] MEDS: lisinopriL 20 MG TAB PO SCH (08:26)
--- NOTE | 2021-02-05 08:31 | NUR ---
PT IS AWAKE AND ALERT ORIENTED X 3. PT SELECTIVELY MUTE WITH FLAT AFFECT. SCHEDULED MEDICATION GIVEN TOLERATED WELL. DENIES ANY DISTRESS. PT EATING BREAKFAST AT THIS TIME. SAFETY MEASURES IN PLACE.
--- NOTE | 2021-02-05 08:51 | NUR ---
TRANSPORTATION HERE TO TAKE TO [place] FOR MRI PT IS AWAKE AND ALERT ORIENTED X 4 TO BASELINE. DENIES ANY DISTRESS. LEAVING AT THIS TIME.
[2021-02-05 12:00] VITALS: BP 156/82
--- NOTE | 2021-02-05 12:00 | NUR ---
PT RETURNED BACK FROM OUTSIDE APPT. AT 1146, 97.9, 91, 20, 156/82, 98% RA, SCHEDULED IVPB GIVEN TOLERATED WELL TO LEFT AC IV SITE THAT IS INTACT AND PATENT. PROVISION OF CARE PROVIDED.
--- NOTE | 2021-02-05 14:34 | NUR ---
PT RESTING IN BED. DENIES ANY DISTRESS CONTINUES TO RECEIVE IVF WITH NO ISSUES.
--- NOTE | 2021-02-05 14:35 | NUR ---
02/05/21 RD FOLLOW UP COMPLETED PLEASE REFER TO NUTRITION ASSESSMENT UNDER CARE ACTIVITY FOR ESTIMATED NUTRITIONAL NEEDS. 1. CONTINUE CARDIAC DIET TOLERATED 2. RD PROVIDED NUTRITION THERAPY EDUCATION HANDOUT FOR STROKE 3. RD TO FOLLOW-UP 5-7 DAYS, LOW RISK VERO HERNANDEZ, RD
[2021-02-05] MEDS ORDERED: NITR100C7 PO (14:44)
[2021-02-05 15:57] VITALS: BP 134/86
[2021-02-05 16:00] VITALS: BP 134/86
--- NOTE | 2021-02-05 16:30 | NUR ---
DISCUSSED DISCHARGE INSTRUCTIONS WITH PATIENT WELL RESULTS OF NEGATIVE MRI. PT VERBALIZED UNDERSTANDING. ALL QUESTIONS ANSWERED. ANGIE NOTIFIED OF DISCHARGE WILL BE PICKING UP IN 15 MIN.
--- NOTE | 2021-02-05 17:15 | NUR ---
PT DISCHARGED AT THIS TIME. PICKED UP BY ANGIE. LEFT WITH ALL BELONGINGS INCLUDING PHONE, TECHNICAL SALES MANAGER AND PERSONAL BELONGINGS BAG. PT VERBALIZED UNDERSTANDING OF DISCHARGE INSTRUCTIONS. AMBULATE WITH STEADY GAIT.
== END 2021-02-05 17:15 | disposition home or self-care (01) | DRG 48 ==
LOC: MED 16:40 → MTU 22:42
PROVIDERS: ADMIT Hospitalist; ATTEND Hospitalist
DX: G90.8 Other disorders of autonomic nervous system (principal); N17.0 Acute kidney failure with tubular necrosis; A59.9 Trichomoniasis, unspecified; E78.5 Hyperlipidemia, unspecified; F14.10 Cocaine abuse, uncomplicated; I12.9 Hypertensive chronic kidney disease with stage 1 through stage 4 chronic kidney disease, or unspecified chronic kidney disease; G81.94 Hemiplegia, unspecified affecting left nondominant side; N39.0 Urinary tract infection, site not specified; Z20.822 Contact with and (suspected) exposure to COVID-19; N18.30 Chronic kidney disease, stage 3 unspecified; Z71.51 Drug abuse counseling and surveillance of drug abuser
CPT/HCPCS: 36415; 70450; 71045; 80048; 80053; 80305; 81001; 83735; 84100; 84484; 85025; 87081; 87086; 93005; 97112; 97116; 97163-GP; 97530; 99285; J0696; J1644; J2270; J7060; Q9967

== ENCOUNTER 2022-10-26 11:16 | Emergency (ER) | payer MEDICAID, OTHER ==
[~2022-10-26] VITALS: Ht 167.6 cm; Wt 74.8 kg
[~2022-10-26 11:16] MED LIST changes: -LISI40TA10 PO; +LISI40TA14 PO; +NITR100C7 PO
[2022-10-26 11:19] VITALS: BP 144/89
--- NOTE | 2022-10-26 11:30 | NUR ---
DR MORENO MADE AWARE OF PT IN LOBBY, UNABLE TO TAKE A FEW STEPS. PER PT SHE HAS DEFICITS FROM PREVIOUS CVA
--- NOTE | 2022-10-26 12:04 | NUR ---
62 Y/O FEMALE BIB FRIEND C/O UNWITNESSED FALL, PER FRIEND THEY FOUND THE PT ON THE FLOOR, PER PT SHE LOST HER BALANCE AND FELL. DENIES HITTING HEAD. -BLOOD THINNER, DENIES PAIN AT THIS TIME, NO HEAD TRAUMA NOTED. PER PT AND FRIEND SHE HAS BEEN UNSTEADY FOR "QUITE SOME TIME" D/T PREVIOUS CVA NKA PMH: HTN, BRAIN TUMORS, CVA
--- NOTE | 2022-10-26 12:19 | NUR ---
WC ASSISTED TO BED 5
--- NOTE | 2022-10-26 13:09 | NUR ---
ASSUMED PATIENT CARE, NURSING ASSESSMENT COMPLETED.
--- NOTE | 2022-10-26 13:18 | NUR ---
TO CT VIA [facility].
[2022-10-26 13:21] LABS: BASOPHILS # (AUTO) 0.1 K/uL (0.00-0.22); BASOPHILS % (AUTO) 0.9 % (0.0-2.0); EOSINOPHILS % (AUTO) 0.7 % (0.0-4.0); HEMATOCRIT 45.6 % (36-48); HEMOGLOBIN 14.7 g/dL (12.0-16.0); LYMPHOCYTES # (AUTO) 1.4 K/uL (2.5-16.5); LYMPHOCYTES % (AUTO) 21.5 % (20.5-51.1); MEAN CORPUSCULAR HEMOGLOBIN 25 pg (27-31); MEAN CORPUSCULAR HGB CONC 32 g/dL (33-37); MONOCYTES # (AUTO) 0.6 K/uL (0.8-1.0); MONOCYTES % (AUTO) 9.3 % (1.7-9.3); NEUTROPHILS # (AUTO) 4.4 K/uL (1.8-7.7); NEUTROPHILS % (AUTO) 67.6 % (42.2-75.2); PLATELET COUNT (AUTO) 205 K/uL (140-450); RED BLOOD CELL COUNT(AUTO) 5.92 MIL/uL (4.20-5.40); RED CELL DISTRIBUTION WIDTH 15.7 % (11.6-13.7); WHITE BLOOD COUNT (AUTO) 6.4 K/uL (4.8-10.8)
[2022-10-26 13:33] LABS: ANION GAP 12.9 (8-16); CREATININE 1.2 mg/dL (0.6-1.3); POTASSIUM 3.9 mmol/L (3.5-5.1); TOTAL BILIRUBIN 0.5 mg/dL (0.0-1.0)
[2022-10-26] MEDS ORDERED: OXYB5TAB44 PO (14:12)
[2022-10-26] MEDS ORDERED: NIFE60TE5 PO (14:12)
--- NOTE | 2022-10-26 15:11 | NUR ---
SEEN AND REEVALUATED BY DR MILLER, PATIENT "ROAD TESTED" BY MD, (+) ATAXIA.
--- NOTE | 2022-10-26 19:00 | NUR ---
PT IS ALERT ORIENETED X4, ABLE TO FOLLOW COMMAND. SHE IS RESTING ON TH BED. FALL PRECUATION IS CONTINUE.
--- NOTE | 2022-10-26 19:23 | NUR ---
ENDORSED CARE TO GLASS SELECTOR RNTRINITY.
--- NOTE | 2022-10-26 20:11 | NUR ---
SPOKE TO JUNG ROUSE AT [facility] FOR REPORT.
--- NOTE | 2022-10-26 20:39 | NUR ---
[facility] FOR TRANSPORT
--- NOTE | 2022-10-26 20:43 | NUR ---
TRANSPORT [facility] IS HERE TO IT SALES CONSULTANT THE PATIENT. R3PORT IS GIVEN TO EFREN EMT. PT IS ALERT AND ORIENTED FOLOW COMMAND. IV IS REMOVED
[2022-10-26 20:52] VITALS: BP 137/74
--- NOTE | 2022-10-26 21:21 | NUR ---
Patient Tranfers to outside Facility [facility] Physician: MONAE Location: [facility]
== END 2022-10-26 21:21 | disposition short-term general hospital (02) ==
LOC: MED 11:16
DX: R27.0 Ataxia, unspecified (principal); Z20.822 Contact with and (suspected) exposure to COVID-19; I10 Essential (primary) hypertension; Z86.73 Personal history of transient ischemic attack (TIA), and cerebral infarction without residual deficits; Z79.899 Other long term (current) drug therapy
CPT/HCPCS: 36415; 70450; 70496; 70498; 71045; 80053; 83880; 84484; 85025; 87426; 99285; Q9967